=== PATIENT | male | born 1995 | race American Indian/Alaskan Native ===

== ENCOUNTER 2021-07-17 17:48 | Emergency (ER) | payer OTHER ==
[2021-07-17] MEDS ORDERED: ONDANSETRON 4 MG/2 ML INJ IV ONE ×2 (19:17→22:02)
[2021-07-17] MEDS ORDERED: MORPHINE 4 MG/1 ML INJ IV ONE (19:17)
[2021-07-17] MEDS ORDERED: TETANUS,DIPH,PERTUSS(ACELL) VACCINE 0.5 ML SYRINGE IM ONE (19:18)
[2021-07-17 19:46] LABS: Basophils % (Auto) 0.2 % (0.0-1.8); Eosinophils # (Auto) 0.2 K/mm3 (0.0-0.4); Hematocrit 42.9 % (35.5-45.6); Lymphocytes # (Auto) 1.8 K/mm3 (1.2-5.4); Lymphocytes % (Auto) 16.6 % (13.4-35.0); Mean Corpuscular HGB Conc 33 % (32-34); Mean Corpuscular Volume 92 fl (84-94); Monocytes # (Auto) 0.8 K/mm3 (0.0-0.8); Monocytes % (Auto) 7.4 % (0.0-7.3); Platelet Count 210 K/mm3 (140-440); Red Blood Count 4.69 M/mm3 (3.65-5.03); Red Cell Distribution Width 13.1 % (13.2-15.2)
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
[2021-07-17] MEDS ORDERED: BALANCED SALT IRRIG 1 DROPS, TETRACAINE 0.5% 1 DROPS, FLUORESCEIN 1 MG OS ONE ×4 (20:00→21:30)
[2021-07-17 20:05] LABS: BUN/Creatinine Ratio 12; Blood Urea Nitrogen 12 mg/dL (9-20); Calcium 9.8 mg/dL (8.4-10.2); Hemolysis Index 13
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
[2021-07-17] MEDS ORDERED: CLINDAMYCIN 600 MG/50 mL 600 MG/50 ML BAG IV ONE (20:25)
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
[2021-07-17] MEDS ORDERED: HYDROmorphone 1 MG/1 ML INJ IV ONE (21:24)
[2021-07-17] MEDS ORDERED: ONDANSETRON 4 MG/2 ML INJ ONE (22:02)
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
[2021-07-18] MEDS ORDERED: HYDROmorphone 1 MG/1 ML INJ IV ONE (01:56)
[2021-07-18 02:51] VITALS: BP 128/74
== END 2021-07-18 02:30 | disposition short-term general hospital (02) ==
LOC: ED 17:48
DX: S02.32XA Fracture of orbital floor, left side, initial encounter for closed fracture (principal); S01.112A Laceration without foreign body of left eyelid and periocular area, initial encounter; S80.01XA Contusion of right knee, initial encounter; R10.9 Unspecified abdominal pain; Z88.0 Allergy status to penicillin; V89.2XXA Person injured in unspecified motor-vehicle accident, traffic, initial encounter; Y93.89 Activity, other specified; Y92.488 Other paved roadways as the place of occurrence of the external cause; Y99.8 Other external cause status
CPT/HCPCS: 36415; 70450; 70486; 71260; 72125; 73562; 74177; 80048; 85025; 90471; 90715; 96365; 96375; 96376; 99285; J1170; J2270; J2405; J7502; Q9967